=== PATIENT | male | born 1995 | race Caucasian/White ===

== ENCOUNTER 2017-06-10 14:00 | Emergency (ER) | payer OTHER ==
[~2017-06-10] VITALS: Ht 167.6 cm; Wt 60.0 kg
[2017-06-10 14:09] VITALS: BP 129/73; PULSE 70; RESP 20; TEMP 98.9; O2SAT 98
[2017-06-10] MEDS ORDERED: ONDANSETRON HCL 4 MG/2 ML VIAL IV PUSH ONE (16:15)
[2017-06-10] MEDS ORDERED: MORPHINE SULFATE 4 MG/ML INJ IV PUSH ONE ×2 (16:15→18:15)
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
[2017-06-10] MEDS ORDERED: KETOROLAC TROMETHAMINE 30 MG/ML (IVP) VIAL IV PUSH ONE (18:15)
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
[2017-06-10] MEDS ORDERED: IOHEXOL 350 MG/ML 10 ML VIAL (for RAD DIAG) IV ONE (19:00)
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
[2017-06-10] MEDS ORDERED: HYDR-3533 PO (19:29)
[2017-06-10] MEDS ORDERED: DICL75TA PO (19:29)
[2017-06-10 19:31] VITALS: BP 120/59
[2017-06-10 19:59] LABS: AUTOMATED NEUTROPHIL # 5.7 TH/MM3 (1.8-7.7); BASOPHIL # 0.1 TH/MM3 (0-0.2); BASOPHIL % 0.6 % (0.0-2.0); EOSINOPHIL # 0.1 TH/MM3 (0-0.4); HEMATOCRIT 43.1 % (39.0-51.0); HEMO FLAGS DIFF FINAL; LYMPH % 25.8 % (9.0-44.0); LYMPHOCYTE # 2.2 TH/MM3 (1.0-4.8); MEAN CELL VOLUME 88.8 FL (80.0-100.0); MEAN CORPUSCULAR HEMOGLOBIN 29.7 PG (27.0-34.0); MEAN CORPUSCULAR HGB CONC 33.5 % (32.0-36.0); MONO % 7.1 % (0.0-8.0); NEUT % 65.5 % (16.0-70.0); PLATELET COUNT 308 TH/MM3 (150-450); RED BLOOD COUNT 4.85 MIL/MM3 (4.50-5.90); RED CELL DISTRIBUTION WIDTH 12.4 % (11.6-17.2); WHITE BLOOD COUNT 8.7 TH/MM3 (4.0-11.0)
[2017-06-10 20:25] LABS: BICARBONATE 27.6 MEQ/L (21.0-32.0)
[2017-06-10 20:26] LABS: POTASSIUM 4.3 MEQ/L (3.5-5.1)
== END 2017-06-10 19:31 | disposition home or self-care (01) ==
LOC: NEPD 14:00
DX: S50.02XA Contusion of left elbow, initial encounter (principal); S80.02XA Contusion of left knee, initial encounter; S70.02XA Contusion of left hip, initial encounter; S20.212A Contusion of left front wall of thorax, initial encounter; S30.1XXA Contusion of abdominal wall, initial encounter; S50.312A Abrasion of left elbow, initial encounter; S50.311A Abrasion of right elbow, initial encounter; M25.462 Effusion, left knee; V13.4XXA Pedal cycle driver injured in collision with car, pick-up truck or van in traffic accident, initial encounter
CPT/HCPCS: 70450; 71260; 72125; 73070; 73080; 73560; 73564; 74177; 80048; 85025; 96374; 96375; 96376; 99285; J1885; J2270; J2405; Q9967